=== PATIENT | female | born 1970 | race Caucasian/White ===

== ENCOUNTER 2016-07-23 19:45 | Inpatient (IN) | payer OTHER ==
[~2016-07-23] VITALS: Ht 172.7 cm; Wt 65.8 kg
[~2016-07-23 19:45] MED LIST: ALEVE220 M2 PO; ALPRAZOLAM0.5 MG PO; ALPRAZOLAM1 MG PO; BUPROPION HCL150 M2 PO; BUSPAR15 MG PO; CIPRO500 MG PO; FLAGYL250 MG PO; GABAPENTIN300 MG PO; GABAPENTIN400 MG; GABAPENTIN400 MG PO; GABAPENTIN600 MG PO; HYDROCODON-ACE1 EAC8; HYDROCODON-ACE1 EAC8 PO; HYDROCODON-ACE1 EAC9 PO; INDOCIN25 MG PO; LAMICTAL25 MG PO; LAMOTRIGINE200 MG PO; MECLIZINE HCL25 MG PO; MOTRIN800 MG PO; MS CONTIN,ORAMO15 M1 PO; NOHOMEMEDS; NORCO 5/3251 TABLET PO; NUCYNTA ER200 MG; NUCYNTA ER200 MG PO; PRISTIQ PO; PRISTIQ50 MG PO; PROZAC40 MG PO; SERTRALINE HCL50 MG PO; TRAZODONE HCL150 MG PO; TRAZODONE HCL50 MG; TRAZODONE HCL50 MG PO; VALIUM5 MG PO; XANAX1 MG PO; ZOFRAN4 MG PO; ZOLPIDEM TARTRAT5 MG PO
[2016-07-23 21:16] LABS: HEMATOCRIT 40.2 % (36.0-46.0); MCH 30.8 PG (29.0-34.0); MCHC 34.3 G/DL (30.0-36.0); MCV 89.7 FL (83-99); MEAN PLAT.VOLUME 9.5 uM^3 (9.5-12.4); PLATELET COUNT 292 K/uL (156-360); RBC DIS.WIDTH-CV 12.7 % (11.8-14.6); RBC DIS.WIDTH-SD 41.1 % (39-53); RED BLOOD COUNT 4.48 M/uL (3.80-5.20); WHITE BLOOD COUNT 8.9 K/uL (4.1-10.2)
[2016-07-23 21:28] LABS: ADD MIUA? YES; BILIRUBIN NEGATIVE; BLOOD NEGATIVE; COLOR YELLOW ((YELLOW)); GLUCOSE (STRIP) NEGATIVE; KETONES NEGATIVE; LEUKOCYTES NEGATIVE; NITRITE NEGATIVE; PH, URINE 7.5 (5-8); PROTEIN (STRIP) NEGATIVE; SPECIFIC GRAVITY 1.021 (1.000-1.030); UROBILINOGEN 0.2 MG/DL (0.2-1.0)
[2016-07-23 21:28] LABS: CHLORIDE 98 mEq/L (99-109); POTASSIUM 3.3 mEq/L (3.7-5.4); SODIUM 136 mEq/L (136-147)
[2016-07-23 21:31] LABS: GLUCOSE 94 mg/dL (70-99)
[2016-07-23 21:32] LABS: ANION GAP 12 MEQ/L (2-14)
[2016-07-23 21:33] LABS: TOTAL BILIRUBIN 0.2 mg/dL (0.0-1.0)
[2016-07-23 21:34] LABS: ALKALINE PHOSPHATASE 92 IU/L (3-129); SERUM ETHYL ALCOHOL < 10 mg/dL
[2016-07-23 21:35] LABS: GFR ESTIMATE (CALCULATED) > 59 mL/min/
[2016-07-23 21:36] LABS: UREA NITROGEN (BUN) 7 mg/dL (9-23)
[2016-07-23 21:37] LABS: ADD MEDTOX COMMENT Y; AMPHETAMINE NEGATIVE (500 ng/mL); BARBITURATES NEGATIVE (200 ng/mL); BENZODIAZEPINES PRESUMPTIVE POSITIVE (150 ng/mL); COCAINE NEGATIVE (150 ng/mL); INTERNAL CONTROLS VALID? YES; METHADONE NEGATIVE (200 ng/mL); METHAMPHETAMINE NEGATIVE (500 ng/mL); OPIATES (MORPHINE) NEGATIVE (100 ng/mL); OXYCODONE NEGATIVE (100 ng/mL); PHENCYCLIDINE NEGATIVE (25 ng/mL); PROPOXYPHENE NEGATIVE (300 ng/mL); THC CANNABINOIDS NEGATIVE (50 ng/mL); TRICYCLIC ANTIDEPRESSANTS NEGATIVE (300 ng/mL)
[2016-07-23 21:52] LABS: AMORPHOUS PHOSPHATE CRYSTALS 3+; BACTERIA RARE; CASTS NONE SEEN /LPF; CRYSTALS PRESENT; EPITHELIAL CELLS RARE; MUCUS NONE SEEN; RED BLOOD CELLS NONE SEEN /HPF (0-5); WHITE BLOOD CELLS RARE /HPF (0-5)
[2016-07-23 22:33] LABS: BENZODIAZEPINES, URINE SCREEN POSITIVE (200 ng/mL)
[2016-07-23] MEDS ORDERED: GABAPENTIN300 MG PO (22:55)
[2016-07-23] MEDS ORDERED: OXCARBAZEPINE600 MG PO (22:55)
[2016-07-23] MEDS ORDERED: DULOXETINE HCL60 MG PO (22:55)
[2016-07-23] MEDS ORDERED: ALPRAZOLAM1 MG PO (22:56)
[2016-07-23 23:49] VITALS: BP 128/83
[2016-07-24 07:40] VITALS: BP 109/60
[2016-07-24 15:51] VITALS: BP 124/82
[2016-07-25 09:39] VITALS: BP 112/64
[2016-07-25 15:54] VITALS: BP 141/61
[2016-07-26 07:45] VITALS: BP 104/61
== END 2016-07-26 13:27 | disposition home or self-care (01) | DRG 885 ==
LOC: EME → EDBD 19:45 → EDOF 22:17 → 1WEST 22:17
PROVIDERS: Emergency Medicine
DX: F31.4 Bipolar disorder, current episode depressed, severe, without psychotic features (principal); F60.3 Borderline personality disorder; T42.1X2A Poisoning by iminostilbenes, intentional self-harm, initial encounter; R63.4 Abnormal weight loss; G89.29 Other chronic pain; L30.9 Dermatitis, unspecified; F17.210 Nicotine dependence, cigarettes, uncomplicated; Z68.22 Body mass index [BMI] 22.0-22.9, adult
CPT/HCPCS: 36600; 80053; 81003; 82803; 83605; 84484; 84999; 85027; 85610; 87040; 90837; 97150 GO; 97166 GO; 99281; 99285; G0480; J2405

== ENCOUNTER 2016-09-10 12:33 | Emergency (ER) | payer OTHER ==
[~2016-09-10] VITALS: Ht 172.7 cm; Wt 72.0 kg
[~2016-09-10 12:33] MED LIST changes: +DULOXETINE HCL60 MG PO; +OXCARBAZEPINE600 MG PO
[2016-09-10 14:05] LABS: HEMATOCRIT 37.5 % (36.0-46.0); MCH 31.1 PG (29.0-34.0); MCHC 34.1 G/DL (30.0-36.0); MCV 91.2 FL (83-99); MEAN PLAT.VOLUME 9.4 uM^3 (9.5-12.4); PLATELET COUNT 284 K/uL (156-360); RBC DIS.WIDTH-CV 12.9 % (11.8-14.6); RED BLOOD COUNT 4.11 M/uL (3.80-5.20); WHITE BLOOD COUNT 13.3 K/uL (4.1-10.2)
[2016-09-10 14:18] LABS: CHLORIDE 99 mEq/L (99-109); POTASSIUM 3.4 mEq/L (3.7-5.4); SODIUM 134 mEq/L (136-147)
[2016-09-10 14:19] LABS: GLUCOSE 91 mg/dL (70-99)
[2016-09-10 14:21] LABS: ANION GAP 7 MEQ/L (2-14)
[2016-09-10 14:23] LABS: GFR ESTIMATE (CALCULATED) > 59 mL/min/
[2016-09-10 14:24] LABS: UREA NITROGEN (BUN) 7 mg/dL (9-23)
[2016-09-10 15:44] LABS: ADD MIUA? YES; BILIRUBIN NEGATIVE; BLOOD NEGATIVE; COLOR AMBER ((YELLOW)); GLUCOSE (STRIP) NEGATIVE; KETONES NEGATIVE; LEUKOCYTES NEGATIVE; NITRITE NEGATIVE; PROTEIN (STRIP) 30; SPECIFIC GRAVITY 1.023 (1.000-1.030); UROBILINOGEN 0.2 MG/DL (0.2-1.0)
[2016-09-10 16:10] LABS: BACTERIA 1+ /HPF; EPITHELIAL CELLS NONE SEEN /HPF; HYALINE CASTS 0-5 /LPF; MUCUS 4+ /LPF; RED BLOOD CELLS 0-5 /HPF (0-5); UCUL ADDED? NO
[2016-09-10] MEDS ORDERED: FLAGYL500 MG PO (16:20)
[2016-09-10] MEDS ORDERED: NORCO 5/3251 TABLET PO (16:20)
[2016-09-10] MEDS ORDERED: CIPRO500 MG PO (16:20)
[2016-09-10 16:36] VITALS: BP 98/55
== END 2016-09-10 16:37 | disposition home or self-care (01) ==
LOC: EME 12:33
PROVIDERS: Physician Assistant
DX: K57.92 Diverticulitis of intestine, part unspecified, without perforation or abscess without bleeding (principal); E87.6 Hypokalemia; E87.1 Hypo-osmolality and hyponatremia
CPT/HCPCS: 74177; 80048; 81003; 83605; 85027; 87040; 99281; 99285; J2405; J3010; J7030

== ENCOUNTER 2016-10-09 16:01 | Emergency (ER) | payer OTHER ==
[~2016-10-09] VITALS: Ht 172.7 cm; Wt 70.4 kg
[~2016-10-09 16:01] MED LIST changes: +FLAGYL500 MG PO
[2016-10-09 16:32] LABS: HEMATOCRIT 39.5 % (36.0-46.0); MCH 30.5 PG (29.0-34.0); MCHC 34.2 G/DL (30.0-36.0); MCV 89.4 FL (83-99); MEAN PLAT.VOLUME 8.8 uM^3 (9.5-12.4); PLATELET COUNT 299 K/uL (156-360); RBC DIS.WIDTH-CV 12.4 % (11.8-14.6); RBC DIS.WIDTH-SD 40.8 % (39-53); RED BLOOD COUNT 4.42 M/uL (3.80-5.20)
[2016-10-09 16:39] VITALS: BP 126/90
[2016-10-09 16:42] LABS: CHLORIDE 97 mEq/L (99-109); POTASSIUM 3.9 mEq/L (3.7-5.4); SODIUM 130 mEq/L (136-147)
[2016-10-09 16:43] LABS: WHITE BLOOD COUNT 7.2 K/uL (4.1-10.2)
[2016-10-09 16:44] LABS: GLUCOSE 99 mg/dL (70-99)
[2016-10-09 16:45] LABS: ANION GAP 7 MEQ/L (2-14)
[2016-10-09 16:48] LABS: GFR ESTIMATE (CALCULATED) > 59 mL/min/; UREA NITROGEN (BUN) 8 mg/dL (9-23)
[2016-10-09 16:52] LABS: TROP-I INTERPRETATION NEGATIVE; TROPONIN-I 0.04 ng/mL (0.0-0.30)
[2016-10-09 16:59] VITALS: BP 107/78
[2016-10-09 17:12] LABS: D-DIMER ELISA 0.33 mg/L FEU (< 0.57)
[2016-10-09 17:18] LABS: TOTAL BILIRUBIN 0.2 mg/dL (0.0-1.0)
[2016-10-09 17:19] LABS: ALKALINE PHOSPHATASE 85 IU/L (3-129)
[2016-10-09 17:21] LABS: DIRECT BILIRUBIN 0.1 mg/dL (0.0-0.3)
[2016-10-09 17:29] VITALS: BP 114/75
[2016-10-09 17:59] VITALS: BP 120/73
[2016-10-09] MEDS ORDERED: TESSALON PERLE100 MG PO (19:07)
[2016-10-09] MEDS ORDERED: ROBITUSSIN AC,T10 ML PO (19:07)
[2016-10-09] MEDS ORDERED: PROAIR HFA8.5 GM IH (19:07)
[2016-10-09] MEDS ORDERED: MEDROL DOSEPAK4 MG PO (19:07)
[2016-10-09 19:29] VITALS: BP 113/74
== END 2016-10-09 19:32 | disposition home or self-care (01) ==
LOC: EME 16:01
DX: J20.9 Acute bronchitis, unspecified (principal); F17.200 Nicotine dependence, unspecified, uncomplicated; Z71.6 Tobacco abuse counseling
CPT/HCPCS: 71020; 80048; 80076; 83880; 84484; 85027; 85379; 93005; 94640; 99281; 99284; J7512

== ENCOUNTER 2017-02-02 11:48 | Inpatient (IN) | payer OTHER ==
[~2017-02-02] VITALS: Ht 172.7 cm; Wt 74.3 kg
[~2017-02-02 11:48] MED LIST changes: +MEDROL DOSEPAK4 MG PO; +PROAIR HFA8.5 GM IH; +ROBITUSSIN AC,T10 ML PO; +TESSALON PERLE100 MG PO
[2017-02-02 12:40] LABS: HEMATOCRIT 40.4 % (36.0-46.0); MCH 30.9 PG (29.0-34.0); MCHC 33.7 G/DL (30.0-36.0); MCV 91.8 FL (83-99); MEAN PLAT.VOLUME 9.6 uM^3 (9.5-12.4); PLATELET COUNT 284 K/uL (156-360); RBC DIS.WIDTH-CV 12.6 % (11.8-14.6); RBC DIS.WIDTH-SD 42.5 % (39-53); WHITE BLOOD COUNT 13.9 K/uL (4.1-10.2)
[2017-02-02 12:43] LABS: ADD MIUA? YES; BILIRUBIN NEGATIVE; BLOOD NEGATIVE; COLOR YELLOW ((YELLOW)); GLUCOSE (STRIP) NEGATIVE; KETONES NEGATIVE; LEUKOCYTES NEGATIVE; NITRITE NEGATIVE; PROTEIN (STRIP) NEGATIVE; SPECIFIC GRAVITY 1.017 (1.000-1.030); UROBILINOGEN 0.2 MG/DL (0.2-1.0)
[2017-02-02 12:54] LABS: CHLORIDE 103 mEq/L (99-109); SODIUM 139 mEq/L (136-147)
[2017-02-02 12:56] LABS: GLUCOSE 74 mg/dL (70-99)
[2017-02-02 12:58] LABS: ANION GAP 8 MEQ/L (2-14); TOTAL BILIRUBIN 0.3 mg/dL (0.0-1.0)
[2017-02-02 13:00] LABS: ALKALINE PHOSPHATASE 90 IU/L (3-129); GFR ESTIMATE (CALCULATED) > 59 mL/min/
[2017-02-02 13:01] LABS: UREA NITROGEN (BUN) 8 mg/dL (9-23)
[2017-02-02 13:08] LABS: BACTERIA NONE SEEN /HPF; EPITHELIAL CELLS RARE /HPF; MUCUS TRACE /LPF; RED BLOOD CELLS 0-5 /HPF (0-5); UCUL ADDED? NO; WHITE BLOOD CELLS 0-5 /HPF (0-5)
[2017-02-02 13:10] LABS: QUANTITATIVE HCG < 4.0 MIU/ML
[2017-02-02 15:50] LABS: SERUM ETHYL ALCOHOL < 10 mg/dL
[2017-02-02 16:15] LABS: ADD MEDTOX COMMENT Y; AMPHETAMINE NEGATIVE (500 ng/mL); BARBITURATES NEGATIVE (200 ng/mL); BENZODIAZEPINES PRESUMPTIVE POSITIVE (150 ng/mL); COCAINE NEGATIVE (150 ng/mL); INTERNAL CONTROLS VALID? YES; METHADONE NEGATIVE (200 ng/mL); METHAMPHETAMINE NEGATIVE (500 ng/mL); OPIATES (MORPHINE) NEGATIVE (100 ng/mL); OXYCODONE NEGATIVE (100 ng/mL); PHENCYCLIDINE NEGATIVE (25 ng/mL); PROPOXYPHENE NEGATIVE (300 ng/mL); THC CANNABINOIDS PRESUMPTIVE POSITIVE (50 ng/mL); TRICYCLIC ANTIDEPRESSANTS NEGATIVE (300 ng/mL)
[2017-02-02] MEDS ORDERED: ZOFRAN ODT4 MG PO (16:27)
[2017-02-02] MEDS ORDERED: FLAGYL500 MG PO (16:27)
[2017-02-02] MEDS ORDERED: CIPRO500 MG PO (16:27)
[2017-02-02] MEDS ORDERED: BENTYL20 MG PO (16:27)
[2017-02-02 16:50] LABS: BENZODIAZEPINES, URINE SCREEN POSITIVE (200 ng/mL)
[2017-02-02] MEDS ORDERED: NEURONTIN300 MG PO (17:33)
[2017-02-03 07:36] VITALS: BP 98/61
[2017-02-03 15:15] VITALS: BP 90/51
[2017-02-04 07:45] VITALS: BP 113/56
[2017-02-04] MEDS ORDERED: METRONIDAZOLE500 MG PO (10:39)
[2017-02-04] MEDS ORDERED: CIPROFLOXACIN500 M1 PO (10:39)
== END 2017-02-04 12:09 | disposition home or self-care (01) | DRG 885 ==
LOC: EME 11:48 → 1WEST 16:59 → EDOF 16:59 → ENRESERV 17:01 → 1WEST 17:23
PROVIDERS: Nurse Practitioner Family
DX: F31.81 Bipolar II disorder (principal); F60.3 Borderline personality disorder; F41.1 Generalized anxiety disorder; K57.32 Diverticulitis of large intestine without perforation or abscess without bleeding; R45.851 Suicidal ideations; Z81.8 Family history of other mental and behavioral disorders; Z91.5 Personal history of self-harm; F17.200 Nicotine dependence, unspecified, uncomplicated; D72.829 Elevated white blood cell count, unspecified
CPT/HCPCS: 74177; 80053; 81003; 84702; 84999; 85027; 90839; 94640; 94640 76; 99202; 99281; 99285; G0480; J1885; J2060; J7030; Q0177

== ENCOUNTER 2017-02-21 10:24 | Inpatient (IN) | payer OTHER ==
[~2017-02-21] VITALS: Ht 172.7 cm; Wt 73.1 kg
[~2017-02-21 10:24] MED LIST changes: +BENTYL20 MG PO; +CIPROFLOXACIN500 M1 PO; +METRONIDAZOLE500 MG PO; +NEURONTIN300 MG PO; +ZOFRAN ODT4 MG PO
[2017-02-21 13:36] LABS: BASOPHIL COUNT 0.1 K/uL (0-0.1); EOSINOPHIL COUNT 0.1 K/uL (0-0.3); HEMATOCRIT 41.4 % (36.0-46.0); IMMATURE GRANULOCYTE (%) 0.3 % (0.0-0.7); LYMPHOCYTE COUNT 2.2 K/uL (1.0-2.8); MCH 31.2 PG (29.0-34.0); MCHC 34.5 G/DL (30.0-36.0); MCV 90.2 FL (83-99); MEAN PLAT.VOLUME 9.5 uM^3 (9.5-12.4); MONOCYTE (%) 8.5 % (3-12); MONOCYTE COUNT 0.6 K/uL (0-0.8); NEUTROPHIL (%) 56.4 % (45-76); NRBC (%) 0.3 /100 WBC (0-0); PLATELET COUNT 329 K/uL (156-360); RBC DIS.WIDTH-CV 12.5 % (11.8-14.6); RBC DIS.WIDTH-SD 41.1 % (39-53); RED BLOOD COUNT 4.59 M/uL (3.80-5.20); WHITE BLOOD COUNT 7.1 K/uL (4.1-10.2)
[2017-02-21 13:47] LABS: ADD MIUA? YES; BILIRUBIN NEGATIVE; BLOOD NEGATIVE; COLOR YELLOW ((YELLOW)); GLUCOSE (STRIP) NEGATIVE; KETONES NEGATIVE; LEUKOCYTES NEGATIVE; NITRITE NEGATIVE; PROTEIN (STRIP) 30; SPECIFIC GRAVITY 1.023 (1.000-1.030); UROBILINOGEN 0.2 MG/DL (0.2-1.0)
[2017-02-21 13:48] LABS: CHLORIDE 96 mEq/L (99-109); POTASSIUM 4.4 mEq/L (3.7-5.4); SODIUM 134 mEq/L (136-147)
[2017-02-21 13:50] LABS: GLUCOSE 82 mg/dL (70-99)
[2017-02-21 13:51] LABS: ANION GAP 10 MEQ/L (2-14)
[2017-02-21 13:52] LABS: TOTAL BILIRUBIN 0.4 mg/dL (0.0-1.0)
[2017-02-21 13:53] LABS: SERUM ETHYL ALCOHOL < 10 mg/dL
[2017-02-21 13:54] LABS: ALKALINE PHOSPHATASE 90 IU/L (3-129); GFR ESTIMATE (CALCULATED) > 59 mL/min/
[2017-02-21 13:56] LABS: UREA NITROGEN (BUN) 6 mg/dL (9-23)
[2017-02-21 13:57] LABS: SALICYLATE < 5.0 MG/DL (15-30)
[2017-02-21 13:58] LABS: BACTERIA NONE SEEN /HPF; EPITHELIAL CELLS RARE /HPF; MUCUS 1+ /LPF; RED BLOOD CELLS 0-5 /HPF (0-5); UCUL ADDED? NO; WHITE BLOOD CELLS 0-5 /HPF (0-5)
[2017-02-21 13:59] LABS: AMPHETAMINE NEGATIVE (500 ng/mL); BENZODIAZEPINES PRESUMPTIVE POSITIVE (150 ng/mL); COCAINE NEGATIVE (150 ng/mL); METHADONE NEGATIVE (200 ng/mL); METHAMPHETAMINE NEGATIVE (500 ng/mL); OPIATES (MORPHINE) NEGATIVE (100 ng/mL); PHENCYCLIDINE NEGATIVE (25 ng/mL); THC CANNABINOIDS PRESUMPTIVE POSITIVE (50 ng/mL); TRICYCLIC ANTIDEPRESSANTS NEGATIVE (300 ng/mL)
[2017-02-21 14:00] LABS: ADD MEDTOX COMMENT Y; BARBITURATES NEGATIVE (200 ng/mL); INTERNAL CONTROLS VALID? YES; OXYCODONE NEGATIVE (100 ng/mL); PROPOXYPHENE NEGATIVE (300 ng/mL)
[2017-02-21 14:32] LABS: BENZODIAZEPINES, URINE SCREEN POSITIVE (200 ng/mL)
[2017-02-21 16:10] VITALS: BP 129/76
[2017-02-21 16:19] VITALS: BP 129/76
[2017-02-22 07:54] VITALS: BP 112/56
[2017-02-22] MEDS ORDERED: CYMBALTA60 MG PO (10:43)
[2017-02-22 16:01] VITALS: BP 119/62
[2017-02-23 07:16] VITALS: BP 110/59
== END 2017-02-23 12:59 | disposition home or self-care (01) | DRG 881 ==
LOC: EME 10:24 → EDOF 14:22 → 1WEST 14:22 → ENRESERV 15:44 → 1WEST 16:04
PROVIDERS: Physician Assistant
DX: F32.9 Major depressive disorder, single episode, unspecified (principal); R45.851 Suicidal ideations; F41.9 Anxiety disorder, unspecified; S93.402A Sprain of unspecified ligament of left ankle, initial encounter; W23.1XXA Caught, crushed, jammed, or pinched between stationary objects, initial encounter; F60.3 Borderline personality disorder; X50.1XXA Overexertion from prolonged static or awkward postures, initial encounter; S61.512A Laceration without foreign body of left wrist, initial encounter; F17.210 Nicotine dependence, cigarettes, uncomplicated; S61.412A Laceration without foreign body of left hand, initial encounter; K57.30 Diverticulosis of large intestine without perforation or abscess without bleeding; Y93.H2 Activity, gardening and landscaping; Y92.017 Garden or yard in single-family (private) house as the place of occurrence of the external cause; Z88.5 Allergy status to narcotic agent; Z91.5 Personal history of self-harm
CPT/HCPCS: 73590; 73610; 80053; 81003; 84999; 85025; 90839; 94640; 94640 76; 99202; G0480; J1885

== ENCOUNTER 2017-04-14 19:53 | Emergency (ER) | payer OTHER ==
[~2017-04-14] VITALS: Ht 170.2 cm; Wt 72.5 kg
[~2017-04-14 19:53] MED LIST changes: +CYMBALTA60 MG PO
[2017-04-14 20:57] LABS: HEMATOCRIT 39.2 % (36.0-46.0); MCH 31.2 PG (29.0-34.0); MCHC 34.2 G/DL (30.0-36.0); MCV 91.2 FL (83-99); MEAN PLAT.VOLUME 9.6 uM^3 (9.5-12.4); NRBC (%) 0.3 /100 WBC (0-0); PLATELET COUNT 315 K/uL (156-360); RBC DIS.WIDTH-CV 12.6 % (11.8-14.6); RBC DIS.WIDTH-SD 41.5 % (39-53); WHITE BLOOD COUNT 7.2 K/uL (4.1-10.2)
[2017-04-14 21:12] LABS: CHLORIDE 104 mEq/L (99-109); POTASSIUM 3.6 mEq/L (3.7-5.4); SODIUM 138 mEq/L (136-147)
[2017-04-14 21:13] LABS: GLUCOSE 86 mg/dL (70-99)
[2017-04-14 21:15] LABS: ANION GAP 7 MEQ/L (2-14)
[2017-04-14 21:17] LABS: GFR ESTIMATE (CALCULATED) > 59 mL/min/; TROP-I INTERPRETATION NEGATIVE; TROPONIN-I < 0.01 ng/mL (0.0-0.30)
[2017-04-14 21:18] LABS: UREA NITROGEN (BUN) 9 mg/dL (9-23)
[2017-04-14 23:17] LABS: TOTAL BILIRUBIN 0.1 mg/dL (0.0-1.0)
[2017-04-14 23:18] LABS: ALKALINE PHOSPHATASE 101 IU/L (3-129)
[2017-04-14 23:21] LABS: DIRECT BILIRUBIN 0.1 mg/dL (0.0-0.3)
[2017-04-14 23:22] LABS: LIPASE 25 U/L (1.0-51.0)
[2017-04-14] MEDS ORDERED: ULTRAM50 MG PO (23:56)
[2017-04-14] MEDS ORDERED: NAPROSYN500 MG PO (23:56)
[2017-04-15 00:37] VITALS: BP 107/44
== END 2017-04-15 00:48 | disposition home or self-care (01) ==
LOC: EME 19:53
DX: R09.1 Pleurisy (principal); R10.11 Right upper quadrant pain; Z90.710 Acquired absence of both cervix and uterus; F17.200 Nicotine dependence, unspecified, uncomplicated
CPT/HCPCS: 71020; 76705; 80048; 80076; 83690; 84484; 85027; 93005; 99281; 99284; J3010

== ENCOUNTER 2017-05-26 12:28 | Emergency (ER) | payer OTHER ==
[~2017-05-26] VITALS: Ht 172.7 cm; Wt 72.4 kg
[~2017-05-26 12:28] MED LIST changes: +NAPROSYN500 MG PO; +ULTRAM50 MG PO
[2017-05-26 12:46] VITALS: BP 108/71
[2017-05-27] MEDS ORDERED: INDOCIN50 MG PO (10:42)
== END 2017-05-26 13:17 | disposition left against medical advice (07) ==
LOC: EME 12:28
DX: M79.605 Pain in left leg (principal); Z53.21 Procedure and treatment not carried out due to patient leaving prior to being seen by health care provider

== ENCOUNTER 2017-05-27 10:18 | Emergency (ER) | payer OTHER ==
[~2017-05-27] VITALS: Ht 172.7 cm; Wt 74.4 kg
[2017-05-27] MEDS ORDERED: INDOCIN50 MG PO (10:42)
[2017-05-27 11:06] VITALS: BP 112/62
== END 2017-05-27 11:06 | disposition home or self-care (01) ==
LOC: EME 10:18
DX: I80.02 Phlebitis and thrombophlebitis of superficial vessels of left lower extremity (principal); F32.9 Major depressive disorder, single episode, unspecified; F17.200 Nicotine dependence, unspecified, uncomplicated; Z88.8 Allergy status to other drugs, medicaments and biological substances
CPT/HCPCS: 99281; 99284

== ENCOUNTER 2017-07-05 12:35 | Emergency (ER) | payer OTHER ==
[~2017-07-05] VITALS: Ht 172.7 cm; Wt 72.2 kg
[~2017-07-05 12:35] MED LIST changes: +INDOCIN50 MG PO
[2017-07-05 13:12] LABS: HEMATOCRIT 40.7 % (36.0-46.0); HEMOGLOBIN 13.8 G/DL (11.9-15.5); MCH 30.9 PG (29.0-34.0); MCHC 33.9 G/DL (30.0-36.0); MCV 91.3 FL (83-99); PLATELET COUNT 322 K/uL (156-360); RBC DIS.WIDTH-CV 12.5 % (11.8-14.6); RBC DIS.WIDTH-SD 41.4 % (39-53); RED BLOOD COUNT 4.46 M/uL (3.80-5.20); WHITE BLOOD COUNT 8.8 K/uL (4.1-10.2)
[2017-07-05 13:24] LABS: APPEARANCE SL.HAZY ((CLEAR)); BILIRUBIN NEGATIVE; BLOOD NEGATIVE; COLOR YELLOW ((YELLOW)); GLUCOSE (STRIP) NEGATIVE; KETONES NEGATIVE; LEUKOCYTES TRACE; NITRITE NEGATIVE; PROTEIN (STRIP) NEGATIVE; SPECIFIC GRAVITY 1.021 (1.000-1.030); UROBILINOGEN 0.2 MG/DL (0.2-1.0)
[2017-07-05 13:31] LABS: ALBUMIN 4.1 g/dL (3.2-4.8); CHLORIDE 97 mEq/L (99-109); POTASSIUM 3.7 mEq/L (3.7-5.4); SODIUM 134 mEq/L (136-147)
[2017-07-05 13:34] LABS: GLUCOSE 55 mg/dL (70-99); TOTAL PROTEIN 6.8 g/dL (6.4-8.3)
[2017-07-05 13:36] LABS: TOTAL BILIRUBIN 0.4 mg/dL (0.0-1.0)
[2017-07-05 13:37] LABS: ALKALINE PHOSPHATASE 95 IU/L (3-129)
[2017-07-05 13:38] LABS: CREATININE 0.7 mg/dL (0.6-1.3); GFR ESTIMATE (CALCULATED) > 59 mL/min/
[2017-07-05 13:39] LABS: AST (GOT) 18 IU/L (2-34); UREA NITROGEN (BUN) 5 mg/dL (9-23)
[2017-07-05 13:39] LABS: BACTERIA NONE SEEN /HPF; EPITHELIAL CELLS NONE SEEN /HPF; MUCUS TRACE /LPF; RED BLOOD CELLS 0-5 /HPF (0-5); UCUL ADDED? NO; WHITE BLOOD CELLS 0-5 /HPF (0-5)
[2017-07-05 13:40] LABS: ALT (GPT) 15 IU/L (3-49)
[2017-07-05 13:41] LABS: LIPASE 16 U/L (1.0-51.0)
[2017-07-05] MEDS ORDERED: ALPRAZOLAM1 MG PO (13:57)
[2017-07-05] MEDS ORDERED: GABAPENTIN300 MG PO (13:57)
[2017-07-05] MEDS ORDERED: DESYREL 150 MG150 MG PO (13:58)
[2017-07-05] MEDS ORDERED: TRILEPTAL600 MG PO (13:58)
[2017-07-05] MEDS ORDERED: DULOXETINE HCL60 MG PO (13:58)
[2017-07-05] MEDS ORDERED: ADVAIR 250/501 DISK IH (13:59)
[2017-07-05] MEDS ORDERED: VENTOLIN HFA18 GM IH (13:59)
[2017-07-05] MEDS ORDERED: TRAMADOL HCL50 MG PO (14:06)
[2017-07-05] MEDS ORDERED: ZOFRAN ODT4 MG PO (15:54)
[2017-07-05] MEDS ORDERED: ULTRAM50 MG PO (15:54)
[2017-07-05] MEDS ORDERED: CIPRO500 MG PO (15:54)
[2017-07-05] MEDS ORDERED: FLAGYL500 MG PO (15:54)
[2017-07-05 16:21] VITALS: BP 101/64
== END 2017-07-05 16:24 | disposition home or self-care (01) ==
LOC: EME 12:35
PROVIDERS: Nurse Practitioner Family
DX: K57.32 Diverticulitis of large intestine without perforation or abscess without bleeding (principal); R73.9 Hyperglycemia, unspecified; Z90.710 Acquired absence of both cervix and uterus; F17.200 Nicotine dependence, unspecified, uncomplicated; Z88.5 Allergy status to narcotic agent; Z88.8 Allergy status to other drugs, medicaments and biological substances
CPT/HCPCS: 74177; 80053; 81003; 82948; 83690; 85027; 99281; 99285; J1885; J7030

== ENCOUNTER 2017-10-26 07:52 | Emergency (ER) | payer OTHER ==
[~2017-10-26] VITALS: Ht 172.7 cm; Wt 70.8 kg
[~2017-10-26 07:52] MED LIST changes: +ADVAIR 250/501 DISK IH; +DESYREL 150 MG150 MG PO; +TRAMADOL HCL50 MG PO; +TRILEPTAL600 MG PO; +VENTOLIN HFA18 GM IH
[2017-10-26 08:19] LABS: HEMATOCRIT 39.9 % (36.0-46.0); MCH 31.6 PG (29.0-34.0); MCHC 35.1 G/DL (30.0-36.0); MCV 90.1 FL (83-99); PLATELET COUNT 290 K/uL (156-360); RBC DIS.WIDTH-CV 12.4 % (11.8-14.6); RBC DIS.WIDTH-SD 41.1 % (39-53); RED BLOOD COUNT 4.43 M/uL (3.80-5.20)
[2017-10-26 08:46] LABS: ALBUMIN 4.4 G/DL (3.2-4.8); ALKALINE PHOSPHATASE 92 IU/L (3-129); ALT (GPT) 12 IU/L (3-49); AST (GOT) 16 IU/L (2-34); CHLORIDE 99 MEQ/L (99-109); CREATININE 0.6 MG/DL (0.6-1.3); GFR ESTIMATE (CALCULATED) > 59 mL/min/; GLUCOSE 99 mg/dL (70-99); POTASSIUM 4.2 MEQ/L (3.7-5.4); SODIUM 133 MEQ/L (136-147); TOTAL BILIRUBIN 0.4 MG/DL (0.0-1.0); TOTAL PROTEIN 6.2 G/DL (6.4-8.3); UREA NITROGEN (BUN) 10 mg/dL (9-23)
[2017-10-26 09:36] LABS: QUANTITATIVE HCG 4.7 MIU/ML
[2017-10-26 09:53] LABS: BILIRUBIN NEGATIVE; BLOOD NEGATIVE; COLOR YELLOW ((YELLOW)); GLUCOSE (STRIP) NEGATIVE; KETONES NEGATIVE; LEUKOCYTES NEGATIVE; NITRITE NEGATIVE; PROTEIN (STRIP) NEGATIVE; SPECIFIC GRAVITY 1.014 (1.000-1.030); UROBILINOGEN 0.2 MG/DL (0.2-1.0)
[2017-10-26 09:58] LABS: APPEARANCE CLEAR ((CLEAR)); UCUL ADDED? NO
[2017-10-26] MEDS ORDERED: AUGMENTIN875 MG PO (11:50)
[2017-10-26] MEDS ORDERED: ZOFRAN ODT4 MG PO (11:50)
[2017-10-26] MEDS ORDERED: MOTRIN600 MG PO (11:50)
[2017-10-26] MEDS ORDERED: LORTAB 5-325 M1 EACH PO (11:50)
[2017-10-26 12:17] VITALS: BP 112/74
== END 2017-10-26 12:18 | disposition home or self-care (01) ==
LOC: EME 07:52
DX: K57.30 Diverticulosis of large intestine without perforation or abscess without bleeding (principal); J45.909 Unspecified asthma, uncomplicated; F17.200 Nicotine dependence, unspecified, uncomplicated; F32.9 Major depressive disorder, single episode, unspecified; F41.9 Anxiety disorder, unspecified; F12.90 Cannabis use, unspecified, uncomplicated; Z88.5 Allergy status to narcotic agent
CPT/HCPCS: 74177; 80053; 81003; 84702; 85027; 99281; 99285; J1630; J1885; J7040

== ENCOUNTER 2017-11-17 08:07 | Emergency (ER) | payer OTHER ==
[~2017-11-17] VITALS: Ht 172.7 cm; Wt 70.2 kg
[~2017-11-17 08:07] MED LIST changes: +AUGMENTIN875 MG PO; +LORTAB 5-325 M1 EACH PO; +MOTRIN600 MG PO
[2017-11-17 09:13] LABS: HEMATOCRIT 39.4 % (36.0-46.0); MCH 31.6 PG (29.0-34.0); MCHC 35.5 G/DL (30.0-36.0); MCV 88.9 FL (83-99); PLATELET COUNT 280 K/uL (156-360); RBC DIS.WIDTH-CV 12.6 % (11.8-14.6); RBC DIS.WIDTH-SD 41.4 % (39-53); RED BLOOD COUNT 4.43 M/uL (3.80-5.20)
[2017-11-17 09:15] LABS: BILIRUBIN NEGATIVE; BLOOD NEGATIVE; COLOR YELLOW ((YELLOW)); GLUCOSE (STRIP) NEGATIVE; KETONES NEGATIVE; LEUKOCYTES NEGATIVE; NITRITE NEGATIVE; PROTEIN (STRIP) NEGATIVE; SPECIFIC GRAVITY 1.014 (1.000-1.030); UROBILINOGEN 0.2 MG/DL (0.2-1.0)
[2017-11-17 09:16] LABS: APPEARANCE CLEAR ((CLEAR)); UCUL ADDED? NO
[2017-11-17] MEDS ORDERED: CIPRO500 MG PO (09:16)
[2017-11-17] MEDS ORDERED: FLAGYL500 MG PO (09:16)
[2017-11-17 09:22] LABS: CHLORIDE 99 mEq/L (99-109); POTASSIUM 4.3 mEq/L (3.7-5.4); SODIUM 133 mEq/L (136-147)
[2017-11-17 09:24] LABS: GLUCOSE 87 mg/dL (70-99)
[2017-11-17 09:28] LABS: CREATININE 0.7 mg/dL (0.6-1.3); GFR ESTIMATE (CALCULATED) > 59 mL/min/
[2017-11-17 09:29] LABS: UREA NITROGEN (BUN) 10 mg/dL (9-23)
[2017-11-17] MEDS ORDERED: ZOFRAN4 MG PO (09:35)
[2017-11-17] MEDS ORDERED: PERCOCET 5/31 TABLET PO (09:35)
[2017-11-17 09:42] VITALS: BP 110/56
== END 2017-11-17 09:51 | disposition home or self-care (01) ==
LOC: EME 08:07
PROVIDERS: Physician Assistant
DX: K57.92 Diverticulitis of intestine, part unspecified, without perforation or abscess without bleeding (principal); F17.200 Nicotine dependence, unspecified, uncomplicated; Z88.5 Allergy status to narcotic agent
CPT/HCPCS: 80048; 81003; 85027; 99281; 99284; J1885

== ENCOUNTER 2017-11-27 10:52 | Emergency (ER) | payer OTHER ==
[~2017-11-27] VITALS: Ht 170.2 cm; Wt 69.4 kg
[~2017-11-27 10:52] MED LIST changes: +PERCOCET 5/31 TABLET PO
[2017-11-27 11:53] LABS: APPEARANCE CLEAR ((CLEAR)); BILIRUBIN NEGATIVE; BLOOD NEGATIVE; COLOR YELLOW ((YELLOW)); GLUCOSE (STRIP) NEGATIVE; KETONES NEGATIVE; LEUKOCYTES TRACE; NITRITE NEGATIVE; PROTEIN (STRIP) NEGATIVE; SPECIFIC GRAVITY 1.023 (1.000-1.030); UROBILINOGEN 0.2 MG/DL (0.2-1.0)
[2017-11-27 11:55] LABS: BACTERIA NONE SEEN /HPF; EPITHELIAL CELLS RARE /HPF; MUCUS TRACE /LPF; RED BLOOD CELLS 0-5 /HPF (0-5); UCUL ADDED? NO; WHITE BLOOD CELLS 0-5 /HPF (0-5)
[2017-11-27 11:57] LABS: HEMATOCRIT 38.3 % (36.0-46.0); HEMOGLOBIN 13.4 G/DL (11.9-15.5); MCV 91.4 FL (83-99); PLATELET COUNT 342 K/uL (156-360); RBC DIS.WIDTH-CV 12.9 % (11.8-14.6); RBC DIS.WIDTH-SD 42.7 % (39-53); RED BLOOD COUNT 4.19 M/uL (3.80-5.20); WHITE BLOOD COUNT 10.9 K/uL (4.1-10.2)
[2017-11-27 12:11] LABS: CHLORIDE 104 mEq/L (99-109); POTASSIUM 3.7 mEq/L (3.7-5.4); SODIUM 138 mEq/L (136-147)
[2017-11-27 12:13] LABS: GLUCOSE 81 mg/dL (70-99); TOTAL PROTEIN 6.5 g/dL (6.4-8.3)
[2017-11-27 12:15] LABS: TOTAL BILIRUBIN 0.4 mg/dL (0.0-1.0)
[2017-11-27 12:16] LABS: ALKALINE PHOSPHATASE 92 IU/L (3-129)
[2017-11-27 12:17] LABS: CREATININE 0.7 mg/dL (0.6-1.3); GFR ESTIMATE (CALCULATED) > 59 mL/min/
[2017-11-27 12:18] LABS: AST (GOT) 15 IU/L (2-34); UREA NITROGEN (BUN) 8 mg/dL (9-23)
[2017-11-27 12:19] LABS: ALT (GPT) 11 IU/L (3-49)
[2017-11-27 12:25] LABS: QUANTITATIVE HCG < 4.0 MIU/ML
[2017-11-27] MEDS ORDERED: CIPRO500 MG PO (17:26)
[2017-11-27] MEDS ORDERED: FLAGYL500 MG PO (17:26)
[2017-11-27] MEDS ORDERED: NORCO 5/3251 TABLET PO (17:26)
[2017-11-27 18:05] VITALS: BP 156/72
== END 2017-11-27 18:05 | disposition home or self-care (01) ==
LOC: EME 10:52
DX: K52.9 Noninfective gastroenteritis and colitis, unspecified (principal); M54.5 Low back pain; K57.30 Diverticulosis of large intestine without perforation or abscess without bleeding; Z90.710 Acquired absence of both cervix and uterus; J45.909 Unspecified asthma, uncomplicated; F17.200 Nicotine dependence, unspecified, uncomplicated
CPT/HCPCS: 74177; 80053; 81003; 84702; 85027; 99281; 99285; J7040

== ENCOUNTER 2018-01-26 10:11 | Emergency (ER) | payer OTHER ==
[~2018-01-26] VITALS: Ht 170.2 cm; Wt 70.5 kg
[2018-01-26 11:26] LABS: HEMATOCRIT 39.8 % (36.0-46.0); HEMOGLOBIN 13.7 G/DL (11.9-15.5); MCH 31.5 PG (29.0-34.0); MCHC 34.4 G/DL (30.0-36.0); MCV 91.5 FL (83-99); PLATELET COUNT 273 K/uL (156-360); RBC DIS.WIDTH-CV 12.6 % (11.8-14.6); RED BLOOD COUNT 4.35 M/uL (3.80-5.20); WHITE BLOOD COUNT 7.5 K/uL (4.1-10.2)
[2018-01-26] MEDS ORDERED: NORCO 5/3251 TABLET PO (11:30)
[2018-01-26] MEDS ORDERED: FLAGYL500 MG PO (11:30)
[2018-01-26] MEDS ORDERED: CIPRO500 MG PO (11:30)
[2018-01-26 11:33] LABS: ALBUMIN 4.3 g/dL (3.2-4.8); CHLORIDE 100 mEq/L (99-109); POTASSIUM 4.7 mEq/L (3.7-5.4); SODIUM 138 mEq/L (136-147)
[2018-01-26 11:36] LABS: GLUCOSE 80 mg/dL (70-99); TOTAL PROTEIN 6.6 g/dL (6.4-8.3)
[2018-01-26 11:38] LABS: TOTAL BILIRUBIN 0.3 mg/dL (0.0-1.0)
[2018-01-26 11:39] LABS: ALKALINE PHOSPHATASE 98 IU/L (3-129); CREATININE 0.7 mg/dL (0.6-1.3); GFR ESTIMATE (CALCULATED) > 59 mL/min/
[2018-01-26 11:40] LABS: UREA NITROGEN (BUN) 12 mg/dL (9-23)
[2018-01-26 11:41] LABS: AST (GOT) 19 IU/L (2-34)
[2018-01-26 11:42] LABS: ALT (GPT) 14 IU/L (3-49)
[2018-01-26 11:48] VITALS: BP 122/68
[2018-01-26 11:48] LABS: APPEARANCE SL.HAZY ((CLEAR)); BILIRUBIN NEGATIVE; BLOOD NEGATIVE; COLOR YELLOW ((YELLOW)); GLUCOSE (STRIP) NEGATIVE; KETONES NEGATIVE; LEUKOCYTES NEGATIVE; NITRITE NEGATIVE; PROTEIN (STRIP) NEGATIVE; SPECIFIC GRAVITY 1.014 (1.000-1.030); UROBILINOGEN 0.2 MG/DL (0.2-1.0)
[2018-01-26 11:52] LABS: BACTERIA RARE /HPF; EPITHELIAL CELLS RARE /HPF; MUCUS TRACE /LPF; RED BLOOD CELLS 0-5 /HPF (0-5); UCUL ADDED? NO; WHITE BLOOD CELLS 0-5 /HPF (0-5)
[2018-01-29] MEDS ORDERED: NEURONTIN600 MG PO (08:53)
[2018-01-29] MEDS ORDERED: SEROQUEL100 MG PO (08:55)
== END 2018-01-26 11:49 | disposition home or self-care (01) ==
LOC: EME 10:11
PROVIDERS: Physician Assistant
DX: R10.9 Unspecified abdominal pain (principal); R11.2 Nausea with vomiting, unspecified; J45.909 Unspecified asthma, uncomplicated; Z90.710 Acquired absence of both cervix and uterus; F17.200 Nicotine dependence, unspecified, uncomplicated
CPT/HCPCS: 80053; 81003; 85027; 99281; 99284; J1885

== ENCOUNTER → 2018-02-02 | Outpatient (CLI) | payer OTHER ==
[~2018-02-02] VITALS: Ht 170.2 cm; Wt 68.0 kg
[~2018-02-02] MED LIST changes: +NEURONTIN600 MG PO; +SEROQUEL100 MG PO
== END | disposition home or self-care (01) ==
LOC: AMB 10:45
PROC: 0DBP8ZX Excision of Rectum, Via Natural or Artificial Opening Endoscopic, Diagnostic (ICD-10-PCS; principal; 2018-02-02)
DX: D12.5 Benign neoplasm of sigmoid colon (principal); K57.30 Diverticulosis of large intestine without perforation or abscess without bleeding; Z80.0 Family history of malignant neoplasm of digestive organs; F31.89 Other bipolar disorder; G89.29 Other chronic pain; E78.5 Hyperlipidemia, unspecified; M19.90 Unspecified osteoarthritis, unspecified site; G62.9 Polyneuropathy, unspecified; I80.02 Phlebitis and thrombophlebitis of superficial vessels of left lower extremity; Z81.8 Family history of other mental and behavioral disorders; Z83.3 Family history of diabetes mellitus; Z82.49 Family history of ischemic heart disease and other diseases of the circulatory system; Z80.41 Family history of malignant neoplasm of ovary; F17.210 Nicotine dependence, cigarettes, uncomplicated; Z79.899 Other long term (current) drug therapy
CPT/HCPCS: 88305

== ENCOUNTER → 2018-02-05 | Outpatient (CLI) | payer MEDICARE | END | disposition home or self-care (01) | LOC: CDC 10:24 | DX: Z01.810 Encounter for preprocedural cardiovascular examination (principal); K57.32 Diverticulitis of large intestine without perforation or abscess without bleeding; R00.1 Bradycardia, unspecified | CPT/HCPCS: 93000 ==

== ENCOUNTER 2018-02-11 18:57 | Inpatient (IN) | payer OTHER ==
[~2018-02-11] VITALS: Ht 170.2 cm; Wt 68.0 kg
[2018-02-12 08:45] VITALS: BP 109/62
[2018-02-12 16:15] VITALS: BP 142/65
[2018-02-12 19:11] VITALS: BP 128/75
[2018-02-12 23:58] VITALS: BP 114/75
[2018-02-13 08:02] VITALS: BP 131/75
[2018-02-13 10:38] LABS: HEMATOCRIT 31.2 % (36.0-46.0); HEMOGLOBIN 11.1 G/DL (11.9-15.5); MCV 88.6 FL (83-99)
[2018-02-13 11:49] VITALS: BP 128/73
[2018-02-13 11:53] LABS: MCH 31.5 PG (29.0-34.0); MCHC 35.3 G/DL (30.0-36.0); RBC DIS.WIDTH-CV 12.9 % (11.8-14.6); RBC DIS.WIDTH-SD 42.2 % (39-53); RED BLOOD COUNT 3.56 M/uL (3.80-5.20); WHITE BLOOD COUNT 17.3 K/uL (4.1-10.2)
[2018-02-13 11:56] LABS: PLATELET COUNT 369 K/uL (156-360)
[2018-02-13 16:21] VITALS: BP 139/74
[2018-02-13 19:05] VITALS: BP 140/76
[2018-02-13 23:30] VITALS: BP 132/67
[2018-02-14 03:30] VITALS: BP 142/70
[2018-02-14 05:43] LABS: HEMATOCRIT 26.3 % (36.0-46.0); HEMOGLOBIN 9.2 G/DL (11.9-15.5); MCH 31.6 PG (29.0-34.0); MCV 90.4 FL (83-99); PLATELET COUNT 262 K/uL (156-360); RBC DIS.WIDTH-CV 13.2 % (11.8-14.6); RBC DIS.WIDTH-SD 43.3 % (39-53); RED BLOOD COUNT 2.91 M/uL (3.80-5.20); WHITE BLOOD COUNT 10.3 K/uL (4.1-10.2)
[2018-02-14 08:19] VITALS: BP 134/77
[2018-02-14 15:53] VITALS: BP 137/76
[2018-02-14 19:33] VITALS: BP 135/74
[2018-02-14 23:15] VITALS: BP 109/60
[2018-02-15 06:18] LABS: HEMATOCRIT 26.7 % (36.0-46.0); HEMOGLOBIN 9.2 G/DL (11.9-15.5); MCH 31.1 PG (29.0-34.0); MCHC 34.5 G/DL (30.0-36.0); MCV 90.2 FL (83-99); PLATELET COUNT 282 K/uL (156-360); RBC DIS.WIDTH-CV 13.3 % (11.8-14.6); RBC DIS.WIDTH-SD 43.8 % (39-53); RED BLOOD COUNT 2.96 M/uL (3.80-5.20); WHITE BLOOD COUNT 9.7 K/uL (4.1-10.2)
[2018-02-15 08:30] VITALS: BP 130/69
[2018-02-15 15:52] VITALS: BP 111/60
[2018-02-15 20:07] VITALS: BP 119/66
[2018-02-15 22:27] VITALS: BP 103/54
[2018-02-16 06:35] LABS: HEMATOCRIT 23.8 % (36.0-46.0); HEMOGLOBIN 8.3 G/DL (11.9-15.5); MCH 31.7 PG (29.0-34.0); MCHC 34.9 G/DL (30.0-36.0); MCV 90.8 FL (83-99); PLATELET COUNT 293 K/uL (156-360); RBC DIS.WIDTH-CV 13.6 % (11.8-14.6); RBC DIS.WIDTH-SD 44.7 % (39-53); RED BLOOD COUNT 2.62 M/uL (3.80-5.20); WHITE BLOOD COUNT 8.1 K/uL (4.1-10.2)
[2018-02-16 08:26] VITALS: BP 120/58
[2018-02-16] MEDS ORDERED: HYDROCODON-ACE1 EAC7 PO (11:37)
[2018-02-16] MEDS ORDERED: TYLENOL REGULA325 MG PO (11:37)
[2018-02-16] MEDS ORDERED: MOTRIN400 MG PO (11:37)
[2018-02-16 15:37] VITALS: BP 110/52
== END 2018-02-16 17:50 | disposition home or self-care (01) | DRG 331 ==
LOC: 2SOUTH → ENRESERV 18:57 → 2EAST 02-12 07:55 → 2SOUTH 02-12 07:55 → ENRESERV 02-12 14:57 → 2EAST 02-12 16:02
PROVIDERS: Physician Assistant Medical; Surgery
PROC: 0WQF0ZZ Repair Abdominal Wall, Open Approach (ICD-10-PCS; principal; 2018-02-12)
PROC: 0DNW4ZZ Release Peritoneum, Percutaneous Endoscopic Approach (ICD-10-PCS; principal; 2018-02-12)
PROC: 0DNN4ZZ Release Sigmoid Colon, Percutaneous Endoscopic Approach (ICD-10-PCS; principal; 2018-02-12)
PROC: 0DTN0ZZ Resection of Sigmoid Colon, Open Approach (ICD-10-PCS; principal; 2018-02-12)
DX: K57.32 Diverticulitis of large intestine without perforation or abscess without bleeding (principal); D64.9 Anemia, unspecified; K43.2 Incisional hernia without obstruction or gangrene; K66.0 Peritoneal adhesions (postprocedural) (postinfection); N99.4 Postprocedural pelvic peritoneal adhesions; K52.9 Noninfective gastroenteritis and colitis, unspecified; F60.3 Borderline personality disorder; F41.1 Generalized anxiety disorder; F31.9 Bipolar disorder, unspecified
CPT/HCPCS: 85014; 85018; 85027; 88307; 94640; 94799; J0330; J1100; J1170; J1885; J2250; J2405; J2710; J2765; J2795; J3010; J3475; J7120; J7643; S0074